=== PATIENT | female | born 1990 | race African-American/Black ===

== ENCOUNTER 2016-10-09 13:54 | Observation (INO) | payer BC ==
[~2016-10-09] VITALS: Ht 167.6 cm; Wt 87.0 kg
[2016-10-09] MEDS ORDERED: BETAMETHASONE 6 MG/ML, 5ML IM ONE (14:55)
[2016-10-09] MEDS ORDERED: BETAMETHASONE 6 MG/ML, 5ML IM SCH (15:00)
== END 2016-10-09 17:25 | disposition home or self-care (01) ==
LOC: LDOP 13:54 → LDIP 14:17
PROVIDERS: ADMIT Obstetrics & Gynecology; ATTEND Obstetrics & Gynecology
DX: O26.899 Other specified pregnancy related conditions, unspecified trimester (principal); Z3A.00 Weeks of gestation of pregnancy not specified
CPT/HCPCS: 59025; 96372; G0378; J0702

== ENCOUNTER 2016-10-10 14:11 | Outpatient (CLI) | payer BC ==
[2016-10-10] MEDS ORDERED: BETAMETHASONE 6 MG/ML, 5ML IM ONE (15:00)
[2016-10-10] MEDS ORDERED: PLEASE ENTER HEIGHT AND WEIGHT MC SCH (15:00)
== END 2016-10-10 15:30 | disposition home or self-care (01) ==
LOC: LDOP 14:11
PROVIDERS: ATTEND Obstetrics & Gynecology
DX: O30.009 Twin pregnancy, unspecified number of placenta and unspecified number of amniotic sacs, unspecified trimester (principal); O26.899 Other specified pregnancy related conditions, unspecified trimester; R10.9 Unspecified abdominal pain; Z23 Encounter for immunization; Z3A.00 Weeks of gestation of pregnancy not specified
CPT/HCPCS: 59025; 96372; 99211; J0702; G0463

== ENCOUNTER 2016-10-26 09:40 | Inpatient (IN) | payer BC ==
[~2016-10-26] VITALS: Ht 167.6 cm; Wt 83.6 kg
[2016-10-26] MEDS ORDERED: OXYTOCIN 30U/ 0.9% NaCL 500ML 500 ML IV SCH (12:29)
[2016-10-26] MEDS ORDERED: LACTATED RINGERS 1,000 ML IV SCH ×2 (12:29→15:00)
[2016-10-26 12:30] VITALS: BP 127/81
[2016-10-26] MEDS ORDERED: SODIUM CITRATE/CITRIC ACID 30 ML UDC PO ONE (12:30)
[2016-10-26] MEDS ORDERED: METOCLOPRAMIDE 5 MG/ML, 2ML IV ONE (12:30)
[2016-10-26] MEDS ORDERED: LACTATED RINGERS 1,000 ML IVBOLUS ONE (12:30)
[2016-10-26] MEDS ORDERED: OXYTOCIN 30U/ 0.9% NaCL 500ML 500 ML ONE (12:36)
[2016-10-26] MEDS ORDERED: NEWBORN KIT ONE ×2 (12:51→13:13)
[2016-10-26] MEDS ORDERED: SODIUM CITRATE/CITRIC ACID 30 ML UDC ONE (13:12)
[2016-10-26] MEDS ORDERED: MISOPROSTOL 200 MCG TABLET ONE (13:13)
[2016-10-26] MEDS ORDERED: METOCLOPRAMIDE 5 MG/ML, 2ML ONE (13:13)
[2016-10-26] MEDS ORDERED: iron PO (13:45)
[2016-10-26] MEDS ORDERED: PREN1TAB60 PO (13:45)
[2016-10-26] MEDS: LACTATED RINGERS 1,000 ML IV SCH ×3 (15:31→23:31)
[2016-10-26] MEDS: OXYTOCIN 30U/ 0.9% NaCL 500ML 500 ML IV SCH (15:31)
[2016-10-26] MEDS ORDERED: morphine SULFATE 10 MG/ML, 1ML IVPush PRN ×2 (16:00)
[2016-10-26] MEDS ORDERED: MISOPROSTOL 200 MCG TABLET PR PRN (16:00)
[2016-10-26] MEDS ORDERED: MEPERIDINE/PF 50 MG/ML IVPush PRN (16:00)
[2016-10-26] MEDS ORDERED: ONDANSETRON 2MG/ML, 2ML IV PRN (16:00)
[2016-10-26] MEDS ORDERED: KETOROLAC 30 MG/1 ML IV PRN (16:00)
[2016-10-26] MEDS ORDERED: SIMETHICONE 80 MG CHEW TAB PO PRN (16:00)
[2016-10-26] MEDS ORDERED: FENTANYL PF 100 MCG/2ML ONE (16:09)
[2016-10-26] MEDS ORDERED: OXYcodone 5 MG/5 ML ORAL.SOL UDC ONE (16:10)
[2016-10-26 17:45] VITALS: BP 116/69
[2016-10-26 19:40] VITALS: BP 110/67
[2016-10-26] MEDS: KETOROLAC 30 MG/1 ML IV SCH (21:28)
[2016-10-26] MEDS: OXYcodone/APAP 5/325MG TABLET PO PRN (21:28)
[2016-10-27 00:13] VITALS: BP 114/64
[2016-10-27] MEDS: OXYcodone/APAP 5/325MG TABLET PO PRN ×6 (00:44→23:35)
[2016-10-27] MEDS: OXYTOCIN 30U/ 0.9% NaCL 500ML 500 ML IV SCH ×3 (01:31→21:31)
[2016-10-27] MEDS: LACTATED RINGERS 1,000 ML IV SCH ×6 (01:31→23:31)
[2016-10-27 03:40] VITALS: BP 112/72
[2016-10-27] MEDS: KETOROLAC 30 MG/1 ML IV SCH ×4 (04:22→23:36)
[2016-10-27 06:51] VITALS: BP 120/70
[2016-10-27] MEDS: PRENATAL VIT/IRON/FA 1 EACH TABLET PO SCH (10:15)
[2016-10-27] MEDS: DOCUSATE 100 MG CAPSULE PO PRN ×2 (10:15→23:36)
[2016-10-27 11:29] VITALS: BP 113/71
[2016-10-27] MEDS: FERROUS GLUCONATE 324 MG TABLET PO SCH (18:52)
[2016-10-27 21:45] VITALS: BP 119/76
[2016-10-27 23:42] VITALS: BP 118/82
[2016-10-28] MEDS: OXYTOCIN 30U/ 0.9% NaCL 500ML 500 ML IV SCH (03:15)
[2016-10-28] MEDS: LACTATED RINGERS 1,000 ML IV SCH ×2 (03:15→03:16)
[2016-10-28] MEDS: OXYcodone/APAP 5/325MG TABLET PO PRN ×5 (03:32→22:02)
[2016-10-28] MEDS: KETOROLAC 30 MG/1 ML IV SCH ×2 (05:34→11:25)
[2016-10-28 07:18] VITALS: BP 124/80
[2016-10-28] MEDS: DOCUSATE 100 MG CAPSULE PO PRN ×2 (08:17→22:02)
[2016-10-28] MEDS: FERROUS GLUCONATE 324 MG TABLET PO SCH ×2 (08:17→18:10)
[2016-10-28] MEDS: PRENATAL VIT/IRON/FA 1 EACH TABLET PO SCH (08:17)
[2016-10-28 19:35] VITALS: BP 114/74
[2016-10-29] MEDS: OXYcodone/APAP 5/325MG TABLET PO PRN ×3 (05:10→18:15)
[2016-10-29] MEDS: PRENATAL VIT/IRON/FA 1 EACH TABLET PO SCH (07:40)
[2016-10-29] MEDS: FERROUS GLUCONATE 324 MG TABLET PO SCH ×2 (07:40→08:13)
[2016-10-29] MEDS: DOCUSATE 100 MG CAPSULE PO PRN (07:46)
[2016-10-29] MEDS: IBUPROFEN 600 MG TABLET PO PRN (08:28)
[2016-10-30] MEDS ORDERED: IBUPROFEN 600 MG TABLET ONE ×2 (00:28→11:11)
[2016-10-30] MEDS: DOCUSATE 100 MG CAPSULE PO PRN ×2 (00:40→08:13)
[2016-10-30] MEDS: IBUPROFEN 600 MG TABLET PO PRN ×2 (00:40→11:10)
[2016-10-30] MEDS: OXYcodone/APAP 5/325MG TABLET PO PRN ×4 (00:40→16:14)
[2016-10-30] MEDS: PRENATAL VIT/IRON/FA 1 EACH TABLET PO SCH (08:13)
[2016-10-30] MEDS ORDERED: OXYC-302 PO (15:35)
[2016-10-30] MEDS ORDERED: IBUP-1222 PO (15:36)
[2016-10-30] MEDS ORDERED: DIPH,PERTUSS(ACELL),TET VAC/PF NC IM-VACC ONE ×2 (16:11→17:00)
[2016-10-30] MEDS ORDERED: DIPH,PERTUSS(ACELL),TET PED/PF 0.5 ML IM-VACC ONE (17:00)
== END 2016-10-30 17:10 | disposition home or self-care (01) | DRG 765 ==
LOC: LDIP 12:09 → 2NW 17:46
PROVIDERS: ADMIT Obstetrics & Gynecology; ATTEND Obstetrics & Gynecology
PROC: 10D00Z1 Extraction of Products of Conception, Low, Open Approach (ICD-10-PCS; principal; 2016-10-26)
DX: O36.5930 Maternal care for other known or suspected poor fetal growth, third trimester, not applicable or unspecified (principal); O30.043 Twin pregnancy, dichorionic/diamniotic, third trimester; O32.8XX1 Maternal care for other malpresentation of fetus, fetus 1; O90.81 Anemia of the puerperium; Z37.2 Twins, both liveborn; Z88.0 Allergy status to penicillin; Z88.1 Allergy status to other antibiotic agents; Z3A.36 36 weeks gestation of pregnancy
CPT/HCPCS: 36415; 82803; 85025; 86850; 86900; 88305; 90715; J1885; J2765; J7120